=== PATIENT | male | born 1990 | race Caucasian/White ===

== ENCOUNTER 2018-07-30 14:24 | Emergency (ER) | payer OTHER ==
[~2018-07-30] VITALS: Ht 175.3 cm; Wt 77.6 kg
[2018-07-30 14:39] VITALS: BP 113/76; Ht 175.3 cm; Wt 77.6 kg
== END 2018-07-30 18:00 | disposition home or self-care (01) ==
LOC: ED 14:24
DX: M79.10 Myalgia, unspecified site (principal); Z76.0 Encounter for issue of repeat prescription; G40.909 Epilepsy, unspecified, not intractable, without status epilepticus

== ENCOUNTER 2018-10-14 18:36 | Emergency (ER) | payer OTHER ==
[~2018-10-14] VITALS: Ht 175.3 cm; Wt 72.6 kg
[2018-10-14 19:10] VITALS: Ht 175.3 cm; Wt 72.6 kg
[2018-10-14 20:11] VITALS: BP 131/75
== END 2018-10-14 20:11 | disposition home or self-care (01) ==
LOC: ED 18:36
DX: S01.81XA Laceration without foreign body of other part of head, initial encounter (principal); F10.20 Alcohol dependence, uncomplicated; Z88.6 Allergy status to analgesic agent; Z88.5 Allergy status to narcotic agent; V00.131A Fall from skateboard, initial encounter; Y93.51 Activity, roller skating (inline) and skateboarding; Y92.331 Roller skating rink as the place of occurrence of the external cause; Y99.8 Other external cause status

== ENCOUNTER 2019-11-06 18:05 | Emergency (ER) | payer OTHER ==
[~2019-11-06] VITALS: Ht 175.3 cm; Wt 72.6 kg
[2019-11-06 18:06] VITALS: BP 130/93; Ht 175.3 cm; Wt 72.6 kg
== END 2019-11-06 18:59 | disposition other institution (70) ==
LOC: ED 18:05
DX: S00.81XA Abrasion of other part of head, initial encounter (principal); F10.10 Alcohol abuse, uncomplicated; Z88.6 Allergy status to analgesic agent; W22.8XXA Striking against or struck by other objects, initial encounter; Y93.89 Activity, other specified; Y92.89 Other specified places as the place of occurrence of the external cause; Y99.8 Other external cause status

== ENCOUNTER 2019-11-06 18:53 | Emergency (ER) | payer OTHER | END 2019-11-06 18:59 | disposition other institution (70) | LOC: ED 18:53 | DX: Z02.89 Encounter for other administrative examinations (principal) ==